=== PATIENT | male | born 1965 | race African-American/Black ===

== ENCOUNTER 2017-03-08 12:13 | Emergency (ER) | payer OTHER ==
[~2017-03-08] VITALS: Ht 177.8 cm; Wt 113.4 kg
[2017-03-08] MEDS ORDERED: AZITHROMYCIN250 MG ORAL (12:33)
--- NOTE | 2017-03-08 12:35 | Emergency Room Report ---
History of Present Illness General Chief Complaint: Flu Like Symptoms Source: Patient Present Illness HPI Patient is a 51-year-old male who presents today with complaints of cough for the last month. He states he initially had fevers which have since resolved. He is complaining of a productive cough with associated runny nose. He reports the contacts at home. He denies any nausea, vomiting, abdominal pain or associated symptoms. He has no significant medical problems and admits to smoking marijuana recreationally. Allergies: Coded Allergies: No Known Allergies (Unverified , 03/08/17) Patient History Reviewed Nursing Documentation: PMH: Agreed, PSxH: Agreed Nursing Documentation-[facility] Past Medical History: No Stated History Review of Systems Respiratory: Reports: cough All Other Systems: negative except mentioned in HPI Physical Exam Vital Signs Date Time Temp Pulse Resp B/P (MAP) Pulse Ox O2 Delivery O2 Flow Rate FiO2 03/08/17 12:17 98.2 100 20 138/87 99 Room Air Sp02 EP Interpretation: reviewed, normal General Appearance: no apparent distress, alert, GCS 15, non-toxic Head: normocephalic, atraumatic Eyes: bilateral eye normal inspection, bilateral eye PERRL ENT: hearing grossly normal, normal pharynx, no angioedema, normal voice Neck: full range of motion, supple/symm/no masses Respiratory: chest non-tender, lungs clear, normal breath sounds, speaking full sentences Cardiovascular #1: regular rate, rhythm, no edema Cardiovascular #2: 2+ carotid (R), 2+ carotid (L), 2+ radial (R), 2+ radial (L) , 2+ dorsalis pedis (R), 2+ dorsalis pedis (L) Gastrointestinal: normal bowel sounds, non tender, soft, non-distended, no guarding, no rebound Rectal: deferred Genitourinary: normal inspection, no CVA tenderness Musculoskeletal: back normal, gait/station normal, normal range of motion, non- tender, calf tenderness Neurologic: alert, oriented x3, responsive, motor strength/tone normal, sensory intact, speech normal Psychiatric: judgement/insight normal, memory normal, mood/affect normal, no suicidal/homicidal ideation Reflexes: 3+ bicep (R), 3+ bicep (L), 3+ tricep (R), 3+ tricep (L), 3+ knee (R) , 3+ knee (L) Skin: normal color, no rash, warm/dry, well hydrated Lymphatic: no adenopathy Medical Decision Making PA Attestation Supervising physician is Diagnostic Impression: Primary Impression: Productive cough ER Course Patient will be treated empirically with antibiotics based on duration of symptoms and risk factors. Patient is discharged home with azithromycin, vitals are within normal limits. Patient is afebrile. Instructed to follow up with PCP for reevaluation. Patient understands and is agreeable with plan. Last Vital Signs Date Time Temp Pulse Resp B/P (MAP) Pulse Ox O2 Delivery O2 Flow Rate FiO2 03/08/17 12:17 98.2 100 20 138/87 99 Room Air Status: improved Disposition: HOME, SELF-CARE Condition: Stable Scripts Azithromycin* (ZITHROMAX*) 250 Mg Tablet 250 MG ORAL DAILY for 5 Days, #6 TAB Prov: Maria E Thomason 03/08/17 Maria E Thomason Mar 08, 2017 12:35
[2017-03-08 12:39] VITALS: BP 138/87
[2017-03-08 12:40] VITALS: BP 138/87
== END 2017-03-08 12:42 | disposition home or self-care (01) ==
LOC: EMR 12:31
DX: R05 Cough (principal)
CPT/HCPCS: 99283

== ENCOUNTER 2017-03-15 08:41 | Emergency (ER) | payer OTHER ==
[~2017-03-15] VITALS: Ht 177.8 cm; Wt 86.2 kg
[~2017-03-15 08:41] MED LIST: AZITHROMYCIN250 MG ORAL
[2017-03-15 09:22] VITALS: BP 148/70
[2017-03-15] MEDS ORDERED: IBUPROFEN800 MG ORAL (09:43)
[2017-03-15] MEDS ORDERED: Tetanus/Diptheria/Pertussis Vaccine 0.5ml Syr IM ONE (09:45)
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
[2017-03-15 10:01] VITALS: BP 127/80
--- NOTE | 2017-03-15 11:12 | Diagnostic Imaging Report ---
Indication: Chest pain Technique: One view of the chest Comparison: none Findings: Lungs and pleural spaces are clear. The heart size is normal. There is some atelectasis of the left lung base Impression: No acute process This agrees with the preliminary interpretation provided by the emergency room physician
== END 2017-03-15 10:01 | disposition home or self-care (01) ==
LOC: EMR 09:12
DX: S20.212A Contusion of left front wall of thorax, initial encounter (principal); S50.311A Abrasion of right elbow, initial encounter; S60.416A Abrasion of right little finger, initial encounter; Y04.2XXA Assault by strike against or bumped into by another person, initial encounter; Y92.9 Unspecified place or not applicable; Z23 Encounter for immunization; I10 Essential (primary) hypertension
CPT/HCPCS: 71045; 90471; 90715; 99283